=== PATIENT | male | born 1950 | race Caucasian/White ===

== ENCOUNTER 2022-09-19 07:33 | Emergency (ER) | payer OTHER ==
[~2022-09-19] VITALS: Ht 170.2 cm; Wt 75.7 kg
[2022-09-19 07:38] VITALS: BP 139/82
[2022-09-19] MEDS ORDERED: LIDOCAINE 2%-EPI 1:200,000 20 ML VIAL IJ SCH (08:30)
[2022-09-19] MEDS ORDERED: LIDOCAINE HCL 1% 10 ML VIAL ONE (08:41)
[2022-09-19 08:50] LABS: BASOPHILS % (AUTO) 0.6 % (0.0-5.0); EOSINOPHILS % (AUTO) 0.9 % (0.0-8.0); HEMATOCRIT 55.4 % (42-54); LYMPHOCYTES % (AUTO) 20.5 % (21.0-51.0); MEAN CORPUSCULAR HEMOGLOBIN 33.4 pg (27.0-33.0); MEAN CORPUSCULAR HGB CONC 34.7 g/dL (32.0-36.0); MEAN CORPUSCULAR VOLUME 96.3 fL (79-99); MONOCYTES % (AUTO) 7.3 % (3.0-13.0); NEUTROPHILS % (AUTO) 70.4 % (40.0-77.0); PLATELET COUNT (AUTO) 243 K/uL (130-400); RED BLOOD CELL COUNT(AUTO) 5.75 MIL/uL (4.50-6.20); WHITE BLOOD COUNT (AUTO) 9.7 K/uL (4.8-10.8)
[2022-09-19 09:05] LABS: CREATININE 0.8 mg/dL (0.5-1.5); POTASSIUM 4.1 mmol/L (3.5-5.1)
[2022-09-19 09:10] LABS: ALBUMIN 3.5 g/dL (3.5-5.0); TOTAL PROTEIN, SERUM 6.8 g/dL (6.0-8.3)
== END 2022-09-19 09:38 | disposition home or self-care (01) ==
LOC: EDH 07:33
DX: L02.212 Cutaneous abscess of back [any part, except buttock and flank] (principal); F17.200 Nicotine dependence, unspecified, uncomplicated; Z88.5 Allergy status to narcotic agent
CPT/HCPCS: 80053; 85025; 36415; 99282; 10060; J3490 ×2

== ENCOUNTER 2022-10-27 07:05 | Emergency (ER) | payer OTHER ==
[~2022-10-27] VITALS: Ht 170.2 cm; Wt 72.6 kg
[2022-10-27 07:46] VITALS: BP 121/90
== END 2022-10-27 07:53 | disposition home or self-care (01) ==
LOC: EDH 07:05
DX: J02.9 Acute pharyngitis, unspecified (principal); F17.200 Nicotine dependence, unspecified, uncomplicated; Z88.5 Allergy status to narcotic agent; Z98.890 Other specified postprocedural states